=== PATIENT | male | born 1975 | race Caucasian/White ===

== ENCOUNTER → 2019-10-27 14:47 | Outpatient (BNVA) | payer OTHER, SELFPAY | PROVIDERS: Family Provider Nurse Practitioner Family; Referring Provider Family Medicine; Visit Provider Podiatrist Foot & Ankle Surgery | DX: M25.572 Pain in left ankle and joints of left foot (principal); M79.672 Pain in left foot | CPT/HCPCS: 73600; 73630 ==

== ENCOUNTER → 2020-02-19 12:08 | Outpatient (BNVA) | payer OTHER, SELFPAY | PROVIDERS: Family Provider Nurse Practitioner Family; Visit Provider Nurse Practitioner Family | DX: R50.9 Fever, unspecified (principal); R10.84 Generalized abdominal pain; A08.4 Viral intestinal infection, unspecified; Z11.59 Encounter for screening for other viral diseases | CPT/HCPCS: 87635 ==

== ENCOUNTER 2021-04-08 09:08 | Emergency (ER) | payer OTHER, SELFPAY ==
[2021-04-08 09:23] VITALS: BP 108/62; PULSE 97; RESP 22; TEMP 36.8; O2SAT 93; BMI 23.0
--- NOTE | 2021-04-08 09:29 | XRR_ITS ---
PROCEDURE INFORMATION: Exam: XR Chest Exam date and time: 04/08/2021 9:29 AM Age: 45 years old Clinical indication: Shortness of breath; Additional info: SOB TECHNIQUE: Imaging protocol: XR of the chest. Views: 1 view. COMPARISON: CR Chest 1 [place] [id number] 10/24/2018 11:13 AM FINDINGS: Lungs: Hyperinflated lungs. No consolidation. Pleural spaces: Unremarkable. No pleural effusion. No pneumothorax. Heart/Mediastinum: Unremarkable. No cardiomegaly. Bones/joints: Unremarkable. XR/XR chest 1V portable [id number] IMPRESSION: Hyperinflated lungs. No consolidation. Radiation Dose CTDIVOL = (mGy): DLP = (mGy-cm)
--- NOTE | 2021-04-08 09:35 | ED_ITS ---
Documented by User: [email or web address] Price 04/08/21 12:50 HPI - SOB/Dyspnea General: Chief Complaint: Shortness of Breath/Dyspnea Stated Complaint: SOB Time Seen by Provider: 04/08/21 09:23 History of Present Illness: HPI Narrative: Patient arrived via ambulance with complaint of shortness of breath. Patient said he has been sick the last 3 days with a dry cough. Has a history of COPD. Patient received albuterol treatment and 125 Solu-Medrol in route. Patient said he is doing much better not requiring any oxygen now still has dry cough. Denies any chest pain fever chills. Patient is a smoker. MD elicited complaint: shortness of breath and cough Pertinent past history: COPD Context: recent illness Timing: constant Severity: moderate Exacerbating factors: exertion Relieving factors: rest Known history of: COPD Associated symptoms: Reports cough; Deny abdominal pain, chest pain, extremity pain, fever(s), nausea or vomiting Treatment prior to arrival: oxygen, bronchodilator and other (Solu-Medrol) Review of Systems Const: Denies: fever(s), chills or body aches Eyes: Denies: change in vision or blurry vision ENMT: Denies: throat pain or nasal congestion Card: Denies: chest pain or dyspnea on exertion Resp: Reports: non-productive cough; Denies: dyspnea or productive cough GI: Denies: abdominal pain, nausea or vomiting : Denies: difficulty urinating Musc: Denies: extremity pain Skin/Breast: Denies: rash Neuro: Denies: headache(s) Psych: Denies: anxiety or depression Chao/Lymph: Denies: easy bruising [facility] ED PFSH: Social History Smoking and tobacco status: current every day smoker Alcohol intake: unknown Current occupational status: employed Physical Exam Const: COMMON NORMALS: no acute distress, average body habitus and patient oriented x3 HENMT: COMMON NORMALS: normocephalic HEAD & SCALP: normal to inspection and normocephalic FACE & SINUS: normal facial exam Eye: COMMON NORMALS: conjunctivae normal GENERAL EYE: appearance normal, both eyes and all related structures CONJUNCTIVA: Yes conjunctivae normal Neck/C-Spine: COMMON NORMALS: no JVD Chest: COMMONS NORMALS: normal inspection of the chest Resp: COMMON NORMALS: normal respiratory effort AUSCULTATION: diminished lung sounds Cardio: COMMON NORMALS: no JVD, regular rate and regular rhythm RATE: regular rate RHYTHM: regular rhythm GI: COMMON NORMALS: Normal to inspection, nondistended, normoactive bowel sounds present Extremity: COMMON NORMALS: normal to inspection and full ROM Neuro: COMMON NORMALS: patient oriented x3 Course Vital Signs: Vital signs: Vital Signs Temperature 98.3 F 04/08/21 09:23 Pulse Rate 97 04/08/21 09:23 Respiratory Rate 22 H 04/08/21 09:23 Blood Pressure 108/62 04/08/21 09:23 Pulse Oximetry 93 04/08/21 09:23 MDM - SOB/Dyspnea MDM Narrative: Medical decision making narrative: Patient presents here with shortness of breath. Patient arrived by ambulance. Patient had a 3-day history of nonproductive cough. Patient is a smoker and has a diagnosis COPD previously. Patient no acute distress. Solu-Medrol and oxygen was provided prehospital. Patient stay here did not require any oxygen. X-ray reveals hyperinflation of the lungs. Laboratory studies were normal. Patient was provided prescription for inhaler antibiotics and steroids and encouraged follow-up with primary care provider this week and also quit smoking. Lab Data: Labs: Lab Results 04/08/21 04/08/21 04/08/21 09:35 09:35 09:35 WBC 7.6 10^3/uL 10^3/ uL (4.0-10.0) RBC 5.02 10^6/uL 10^6 /uL (4.1-5.3) Hgb 15.6 g/dL g/dL (11.7-16.6) Hct 44.3 % % (42.0-52.0) MCV 88.2 fl fl (80-94) MCH 31.1 pg pg (28.0-34.0) MCHC 35.2 g/dL g/dL (30.0-36.0) RDW 11.5 % L % (12.1-15.1) Plt Count 195 10^3/cmm 10^3 /cmm (130-400) MPV 9.8 fL fL (7.4-10.4) Neut % (Auto) 82.2 % % Lymph % (Auto) 8.0 % % [place] % (Auto) 7.3 % % Eos % (Auto) 1.7 % % Baso % (Auto) 0.4 % % Neut # (Auto) 6.23 10^3/uL 10^3 /uL (1.8-7.7) Lymph # (Auto) 0.6 10^3/uL L 10^ 3/uL (0.8-4.8) [place] # (Auto) 0.6 10^3/uL 10^3/ uL (0.2-0.9) Eos # (Auto) 0.1 10^3/uL 10^3/ uL (0.0-0.8) Baso # (Auto) 0.0 10^3/uL 10^3/ uL (0.0-0.1) Nucleated RBC % (a uto) 0 % % Nucleated RBCs # 0.0 /100WBC /100W BC D-Dimer 0.34 ug/mIFEU ug/ mIFEU (0-0.59) Sodium 133 mmol/L L mmol /L (136-145) Potassium 4.0 mmol/L mmol/L (3.5-5.1) Chloride 99 mmol/L mmol/L (98-107) Carbon Dioxide 25 mmol/L mmol/L (22-29) Anion Gap 13.0 (5-19) BUN 6 mg/dL mg/dL (6-20) Creatinine 0.5 mg/dL L mg/dL (0.7-1.2) GFR Calculation 181.5 mL/min H mL /min (90-130) Glucose 109 mg/dL mg/dL (65-115) Calculated Osmolal ity 274 mOsm/kg L mOs m/kg (285-295) Calcium 8.8 mg/dL mg/dL (8.5-10.5) Total Bilirubin 0.6 mg/dL mg/dL (0.15-1.2) AST 23 U/L U/L (0-40) ALT 39 U/L U/L (0-41) Alkaline Phosphata se 69 IU/L IU/L (40-130) Total Protein 6.6 g/dL g/dL (6.6-8.7) Albumin 4.1 g/dL g/dL (3.5-5.2) Globulin 2.5 g/dL g/dL (1.3-4.6) Discharge Plan Discharge Patient Disposition: Home Clinical Impression: Acute exacerbation of chronic obstructive airways disease Condition: Stable Prescriptions: New Zithromax Z-Jason 250 mg tablet See Rx Instructions .ROUTE .COMPLEX Qty: 6 RF: 0 prednisone 20 mg tablet 20 mg PO DAILY Qty: 7 RF: 0 Flovent HFA 44 mcg/actuation HFA aerosol inhaler 2 inh inhalation BID Qty: 10.6 RF: 0 No Action ondansetron HCl [Zofran] 4 mg tablet 4 mg PO Q8H PRN (Reason: nausea and vomiting) Qty: 20 RF: 0 Discharge Orders: Discharge ED (Routine); Ordered 04/08/21 Ordered By: Kaleb Sheldon Referrals: Kalyani Mattson APN [Primary Care Provider] - Discharge Diet: Usual diet Discharge Activity: Increase activity as tolerated Patient Instructions: Acute Bronchitis (ED), COPD (Chronic Obstructive Pulmonary Disease) (ED) Activity Restrictions/Additional Instructions: Follow-up with medical provider as directed. Take medications as prescribed. Return to the ER or your medical provider if condition worsens. Please read and understand discharge instructions. If any questions ask please. Coding Level of Care Code ED Oil Rag Washer for Chg Fwd Exam Comprehensive Documented by User: Mango Jimenes MD 04/13/21 23:11 HPI - SOB/Dyspnea General: Chief Complaint: Shortness of Breath/Dyspnea Stated Complaint: SOB Time Seen by Provider: 04/08/21 09:23 PFS ED PFSH: Social History Smoking and tobacco status: current every day smoker Alcohol intake: unknown Current occupational status: employed Course Vital Signs: Vital signs: Vital Signs Temperature 98.3 F 04/08/21 09:23 Pulse Rate 97 04/08/21 09:23 Respiratory Rate 22 H 04/08/21 09:23 Blood Pressure 108/62 04/08/21 09:23 Pulse Oximetry 93 04/08/21 09:23 MDM - SOB/Dyspnea MDM Narrative: Medical decision making narrative: I have reviewed this documentation by Kaleb Sheldon NP. Mango Jimenes MD Emergency Medicine Lab Data: Labs: Lab Results 04/08/21 04/08/21 04/08/21 09:35 09:35 09:35 WBC 7.6 10^3/uL 10^3/ uL (4.0-10.0) RBC 5.02 10^6/uL 10^6 /uL (4.1-5.3) Hgb 15.6 g/dL g/dL (11.7-16.6) Hct 44.3 % % (42.0-52.0) MCV 88.2 fl fl (80-94) MCH 31.1 pg pg (28.0-34.0) MCHC 35.2 g/dL g/dL (30.0-36.0) RDW 11.5 % L % (12.1-15.1) Plt Count 195 10^3/cmm 10^3 /cmm (130-400) MPV 9.8 fL fL (7.4-10.4) Neut % (Auto) 82.2 % % Lymph % (Auto) 8.0 % % [place] % (Auto) 7.3 % % Eos % (Auto) 1.7 % % Baso % (Auto) 0.4 % % Neut # (Auto) 6.23 10^3/uL 10^3 /uL (1.8-7.7) Lymph # (Auto) 0.6 10^3/uL L 10^ 3/uL (0.8-4.8) [place] # (Auto) 0.6 10^3/uL 10^3/ uL (0.2-0.9) Eos # (Auto) 0.1 10^3/uL 10^3/ uL (0.0-0.8) Baso # (Auto) 0.0 10^3/uL 10^3/ uL (0.0-0.1) Nucleated RBC % (a uto) 0 % % Nucleated RBCs # 0.0 /100WBC /100W BC D-Dimer 0.34 ug/mIFEU ug/ mIFEU (0-0.59) Sodium 133 mmol/L L mmol /L (136-145) Potassium 4.0 mmol/L mmol/L (3.5-5.1) Chloride 99 mmol/L mmol/L (98-107) Carbon Dioxide 25 mmol/L mmol/L (22-29) Anion Gap 13.0 (5-19) BUN 6 mg/dL mg/dL (6-20) Creatinine 0.5 mg/dL L mg/dL (0.7-1.2) GFR Calculation 181.5 mL/min H mL /min (90-130) Glucose 109 mg/dL mg/dL (65-115) Calculated Osmolal ity 274 mOsm/kg L mOs m/kg (285-295) Calcium 8.8 mg/dL mg/dL (8.5-10.5) Total Bilirubin 0.6 mg/dL mg/dL (0.15-1.2) AST 23 U/L U/L (0-40) ALT 39 U/L U/L (0-41) Alkaline Phosphata se 69 IU/L IU/L (40-130) Total Protein 6.6 g/dL g/dL (6.6-8.7) Albumin 4.1 g/dL g/dL (3.5-5.2) Globulin 2.5 g/dL g/dL (1.3-4.6) Discharge Plan Discharge Patient Disposition: Home Clinical Impression: Acute exacerbation of chronic obstructive airways disease Condition: Stable Prescriptions: New Zithromax Z-Jason 250 mg tablet See Rx Instructions .ROUTE .COMPLEX Qty: 6 RF: 0 prednisone 20 mg tablet 20 mg PO DAILY Qty: 7 RF: 0 Flovent HFA 44 mcg/actuation HFA aerosol inhaler 2 inh inhalation BID Qty: 10.6 RF: 0 No Action ondansetron HCl [Zofran] 4 mg tablet 4 mg PO Q8H PRN (Reason: nausea and vomiting) Qty: 20 RF: 0 Discharge Orders: Discharge ED (Routine); Ordered 04/08/21 Ordered By: Kaleb Sheldon Referrals: Kalyani Mattson APN [Primary Care Provider] - Discharge Diet: Usual diet Discharge Activity: Increase activity as tolerated Patient Instructions: Acute Bronchitis (ED), COPD (Chronic Obstructive Pulmonary Disease) (ED) Activity Restrictions/Additional Instructions: Follow-up with medical provider as directed. Take medications as prescribed. Return to the ER or your medical provider if condition worsens. Please read and understand discharge instructions. If any questions ask please. Coding Level of Care Code ED Oil Rag Washer for Rula Fwd Exam Comprehensive
[2021-04-08 10:09] LABS: Basophils % 0.4 %; Eosinophils # 0.1 10^3/uL (0.0-0.8); Eosinophils % 1.7 %; Hematocrit 44.3 % (42.0-52.0); Hemoglobin 15.6 g/dL (11.7-16.6); Lymphocytes # 0.6 10^3/uL (0.8-4.8); Mean Corpuscular HGB Conc 35.2 g/dL (30.0-36.0); Mean Corpuscular Hemoglobin 31.1 pg (28.0-34.0); Mean Corpuscular Volume 88.2 fl (80-94); Mean Platelet Volume 9.8 fL (7.4-10.4); Monocytes # 0.6 10^3/uL (0.2-0.9); Monocytes % 7.3 %; Neutrophils # 6.23 10^3/uL (1.8-7.7); Neutrophils % 82.2 %; Nucleated Red Blood Cells % 0 %; Platelet Count 195 10^3/cmm (130-400); Red Blood Count 5.02 10^6/uL (4.1-5.3); Red Cell Distribution Width 11.5 % (12.1-15.1); White Blood Count 7.6 10^3/uL (4.0-10.0)
[2021-04-08 10:22] LABS: D Dimer 0.34 ug/mIFEU (0-0.59)
[2021-04-08 10:24] LABS: Alanine Aminotransferase 39 U/L (0-41); Albumin Level 4.1 g/dL (3.5-5.2); Alkaline Phosphatase 69 IU/L (40-130); Aspartate Amino Transferase 23 U/L (0-40); Blood Urea Nitrogen 6 mg/dL (6-20); Calcium 8.8 mg/dL (8.5-10.5); Carbon Dioxide 25 mmol/L (22-29); Chloride 99 mmol/L (98-107); Globulin 2.5 g/dL (1.3-4.6); Glomerular Filtration Rate 181.5 mL/min (90-130); Glucose 109 mg/dL (65-115); Osmolality Calculated 274 mOsm/kg (285-295); Sodium 133 mmol/L (136-145); Total Bilirubin 0.6 mg/dL (0.15-1.2); Total Protein 6.6 g/dL (6.6-8.7)
== END 2021-04-08 11:18 | disposition home or self-care (01) ==
PROVIDERS: Emergency Provider Nurse Practitioner Family; PCP Nurse Practitioner Family
DX: J44.1 Chronic obstructive pulmonary disease with (acute) exacerbation (principal); F17.210 Nicotine dependence, cigarettes, uncomplicated
CPT/HCPCS: 71045; 80053; 85025; 85378; 99283; 99291

== ENCOUNTER → 2021-10-11 11:01 | Outpatient (BNVA) | payer OTHER, SELFPAY | PROVIDERS: PCP Nurse Practitioner Family | DX: R06.00 Dyspnea, unspecified (principal); R14.0 Abdominal distension (gaseous); R10.9 Unspecified abdominal pain; A08.4 Viral intestinal infection, unspecified; J40 Bronchitis, not specified as acute or chronic | CPT/HCPCS: 71046; 80053; 80061; 81000; 82150; 83690; 84153; 85025 ==

== ENCOUNTER → 2021-10-18 15:32 | Outpatient (BNVA) | payer OTHER, SELFPAY | PROVIDERS: PCP Nurse Practitioner Family; Visit Provider Nurse Practitioner Family | DX: J44.9 Chronic obstructive pulmonary disease, unspecified (principal) | CPT/HCPCS: 71046 ==

== ENCOUNTER → 2022-01-09 15:07 | Outpatient (BNVA) | payer OTHER, SELFPAY | PROVIDERS: PCP Nurse Practitioner Family; Visit Provider Nurse Practitioner Family | DX: J02.9 Acute pharyngitis, unspecified (principal); Z11.59 Encounter for screening for other viral diseases; U07.1 COVID-19 | CPT/HCPCS: 87071; 87426; 87880 ==

== ENCOUNTER → 2022-09-19 10:01 | Outpatient (BNVA) | payer OTHER, SELFPAY | PROVIDERS: PCP Nurse Practitioner Family; Visit Provider Nurse Practitioner Family | DX: Z12.5 Encounter for screening for malignant neoplasm of prostate (principal); K21.9 Gastro-esophageal reflux disease without esophagitis; N52.9 Male erectile dysfunction, unspecified; Z13.6 Encounter for screening for cardiovascular disorders; G47.10 Hypersomnia, unspecified; J44.9 Chronic obstructive pulmonary disease, unspecified | CPT/HCPCS: 80053; 80061; 82306; 82607; 83735; 84403; 84443; 85025; G0103 ==

== ENCOUNTER → 2023-08-01 11:42 | Outpatient (BNVA) | payer OTHER, SELFPAY | PROVIDERS: PCP Nurse Practitioner Family; Visit Provider Nurse Practitioner Family | DX: T78.40XA Allergy, unspecified, initial encounter (principal); Y99.9 Unspecified external cause status | CPT/HCPCS: 82785; 86003 ==